=== PATIENT | male | born 1995 | race Caucasian/White ===

== ENCOUNTER 2021-06-16 16:54 | Emergency (ER) | payer OTHER ==
[~2021-06-16 16:54] MED LIST: ADMELOG SO100 UNIT/1 SC; AMOXICILLIN500 MG PO
[2021-06-16] MEDS ORDERED: TRESIBA FL200 UNIT/1 SC (18:36)
[2021-06-16] MEDS ORDERED: ADMELOG SO100 UNIT/1 SC (18:36)
== END 2021-06-16 18:57 | disposition home or self-care (01) ==
LOC: FER 16:54
DX: Z76.0 Encounter for issue of repeat prescription (principal); E10.9 Type 1 diabetes mellitus without complications; F17.220 Nicotine dependence, chewing tobacco, uncomplicated
CPT/HCPCS: 99281

== ENCOUNTER 2021-06-28 23:01 | Emergency (ER) | payer OTHER ==
[~2021-06-28 23:01] MED LIST changes: +TRESIBA FL200 UNIT/1 SC
[2021-06-29] MEDS ORDERED: NORCO 5-325 TA1 EACH PO (00:11)
[2021-06-29] MEDS ORDERED: AUGMENTIN 875-1 EACH PO (00:11)
== END 2021-06-29 00:57 | disposition home or self-care (01) ==
LOC: FER 23:01
DX: H92.02 Otalgia, left ear (principal); E11.9 Type 2 diabetes mellitus without complications; Z79.4 Long term (current) use of insulin
CPT/HCPCS: 99282

== ENCOUNTER 2022-03-18 19:06 | Emergency (ER) | payer OTHER ==
[~2022-03-18 19:06] MED LIST changes: +AUGMENTIN 875-1 EACH PO; +NORCO 5-325 TA1 EACH PO
[2022-03-18] MEDS ORDERED: AMOXICILLIN500 MG PO (19:53)
== END 2022-03-18 19:58 | disposition home or self-care (01) ==
LOC: FER 19:06
DX: K04.7 Periapical abscess without sinus (principal); E10.9 Type 1 diabetes mellitus without complications; F17.220 Nicotine dependence, chewing tobacco, uncomplicated; Z28.310 Unvaccinated for COVID-19
CPT/HCPCS: 99282